=== PATIENT | female | born 1970 | race African-American/Black ===

== ENCOUNTER 2018-12-21 10:35 | Emergency (ER) | payer BC, MEDICAID, OTHER ==
[~2018-12-21] VITALS: Ht 170.2 cm; Wt 101.0 kg
[~2018-12-21 10:35] MED LIST: ALBU5SOL6 INH; ALBU8.5H5 INH; DOCU-131 PO; FERR325T18 PO; HYDR2TAB29 PO; IBUP-1222 PO; IBUP-1223 PO; METH750T2 PO; NICO-430 TP; OXYC20TA2 PO; OXYC30TA PO; TRAM50TA2 PO
--- NOTE | 2018-12-21 11:02 | NUR ---
PT TO ROOM FROM MD SARA AT BEDSIDE. PT TO ED WITH HX "SLIPPED DISC" AND NOW WITH NUMBNESS AND PAIN IN RUE/HAND.
[2018-12-21] MEDS ORDERED: IBUPROFEN 600 MG TABLET ONE (11:14)
[2018-12-21] MEDS ORDERED: IBUPROFEN 600 MG TABLET PO ONE (11:30)
[2018-12-21 11:32] LABS: BASOPHILS # (AUTO) 0.02 x10^3/uL (0-0.1); BASOPHILS % (AUTO) 0 % (0-1); EOSINOPHILS # (AUTO) 0.08 x10^3/uL (0-0.4); EOSINOPHILS % (AUTO) 1 % (1-7); HCT (SEDRATE) 42.2 % (34.6-47.8); LYMPHOCYTES # (AUTO) 1.42 x10^3/uL (1-3.4); LYMPHOCYTES % (AUTO) 19 % (22-44); MD NO; MEAN CORPUSCULAR HEMOGLOBIN 29.3 pg (27.0-34.8); MEAN CORPUSCULAR HGB CONC 32.8 g/dL (32.4-35.8); MEAN CORPUSCULAR VOLUME 89.3 fL (80-100); MEAN PLATELET VOLUME 9.5 fL (7.4-10.4); MONOCYTES # (AUTO) 0.38 x10^3/uL (0.2-0.8); MONOCYTES % (AUTO) 5 % (2-9); NEUTROPHILS # (AUTO) 5.74 x10^3/uL (1.8-6.8); NEUTROPHILS % (AUTO) 75 % (42-75); PLATELET COUNT 201 x10^3/uL (130-400); RED BLOOD COUNT 4.76 x10^6/uL (3.82-5.3); RED CELL DISTRIBUTION WIDTH 14.3 % (9.6-15.2)
[2018-12-21 11:43] LABS: ANION GAP 7 mmol/L (5-15); CALCIUM 9.4 mg/dL (8.5-10.1); CHLORIDE 109 mmol/L (98-107); CREATININE 0.69 mg/dL (0.55-1.02)
--- NOTE | 2018-12-21 11:47 | NUR ---
PT TO MRI
--- NOTE | 2018-12-21 12:04 | NUR ---
LABS AND MRI RESULTS DONE, PT UP FOR RECHECK
--- NOTE | 2018-12-21 13:08 | NUR ---
PT SPLINTED BY EMT
--- NOTE | 2018-12-21 13:58 | NUR ---
AT BEDSIDE, PT TO BE DC'D HOME
[2018-12-21 14:15] VITALS: BP 112/73
== END 2018-12-21 14:25 | disposition home or self-care (01) ==
LOC: ED 14:09
DX: R53.1 Weakness (principal); J45.909 Unspecified asthma, uncomplicated; Z86.14 Personal history of Methicillin resistant Staphylococcus aureus infection
CPT/HCPCS: 36415; 70551; 72141; 80048; 85025; 85651; 99284